=== PATIENT | male | born 1965 ===

== ENCOUNTER 2017-09-07 14:53 | Emergency (ER) | payer OTHER ==
[2017-09-07 15:22] VITALS: BP 139/93
[2017-09-07] MEDS ORDERED: Tetan/Diph/Pertus SYR(Tdap)* 0.5 ML SYR(BOOSTRIX) use SYR IM ONE (16:17)
[2017-09-07] MEDS ORDERED: Bupivacaine 0.25% SDV* 30 ML INJ ONE (16:18)
[2017-09-07] MEDS ORDERED: Lidocaine 1% MPF* 2 ML VIAL INJ ONE (16:19)
--- NOTE | 2017-09-07 16:21 | UC ---
Laceration HPI - HPI Summary HPI Summary: C/O left index finger laceration after catching is on the back deck of the house. Was on a mower. - History Of Current Complaint Chief Complaint: UCLaceration Stated Complaint: L PINKY INJURY - WC Time Seen by Provider: 09/07/17 15:56 Hx Obtained From: Patient Laceration Location: Finger - Left fifth Mechanism Of Injury: Blunt Trauma Onset/Duration: Sudden Onset Severity: Moderate Pain Intensity: 4 Aggravating Factors: Movement Hands: 1 - flap laceration Related History: Occupational Injury, Dominant Hand Right - Allergies/Home Medications Allergies/Adverse Reactions: Allergies Allergy/AdvReac Type Severity Reaction Status Date / Time No Known Allergies Allergy Verified 09/07/17 15:22 Home Medications: Home Medications NK [No Home Medications Reported] 09/07/17 [History Confirmed 09/07/17] PMH/Surg Hx/FS Hx/Imm Hx Previously Healthy: Yes - Surgical History Surgical History: Yes Surgery Procedure, Year, and Place: hernia - Family History Known Family History: Negative: Diabetes - Social History Occupation: Employed Full-time Lives: With Family Alcohol Use: Rare Substance Use Type: None Smoking Status (MU): Former Smoker Review of Systems Skin: Rash - on the back of the hands Is Patient Immunocompromised?: No All Other Systems Reviewed And Are Negative: Yes Physical Exam Triage Information Reviewed: Yes Appearance: Well-Appearing, No Pain Distress, Well-Nourished Vital Signs: Initial Vital Signs Temp 98.9 F 09/07/17 15:15 Pulse 65 09/07/17 15:15 Resp 16 09/07/17 15:15 BP 139/93 09/07/17 15:15 Pulse Ox 98 09/07/17 15:15 Vital Signs Reviewed: Yes Eyes: Positive: Conjunctiva Inflamed Neck exam: Normal Respiratory Exam: Normal Cardiovascular Exam: Normal Musculoskeletal: Positive: Strength Intact - left 5th finger, ROM Intact - left 5th finger Neurological Exam: Normal - sensation intact Psychological Exam: Normal Skin: Positive: significant lesion(s) - laceration left 5th finger Laceration Repair - Laceration Repair 1 Description: Irregular - flap laceration left palmar proximal 5th finger. Flap lifted caudally Laceration Size After Repair: Length (cm) - 7.9 cm Modified For Repair: No Type Injection: Digital - left 5th finger 8cc total Anesthesia Used: 1.0% Lido, 0.25% Marcaine - Digital block left 5th finger Cleansing Completed Via Routine Prep: Yes Irrigation With Pressure Irrigation Device: Yes Closure Material: Sutures Closure Method: Multilayer Suture Of: Skin - 4-0 nylon x22 running stitch, SQ - 4-0 vicryl x2 Suture Type: Nylon - 4-0, Vicryl - 4-0 Diagnostics - Radiology No standard instances Xray Interpretation: No Acute Changes Radiology Interpretation Completed By: ED Physician Laceration Course/Dx - Differential Dx - Laceration/Wound Differental Diagnoses: Abrasion, Avulsion, Laceration Provider Diagnoses: left 5th finger laceration 7.9 cm. layered repair Discharge - Sign-Out/Discharge Documenting (check all that apply): Discharge/Admit/Transfer - Discharge Plan Condition: Stable Disposition: HOME Patient Education Materials: Laceration (ED), Finger Laceration (ED) Referrals: Non Staff,Doctor [Primary Care Provider] - Additional Instructions: Antibiotic ointment with telfa and coflex wrap for compression. Return in 10 days for suture removal - Billing Disposition and Condition Condition: STABLE Disposition: Home Images Hands: 1 - flap apex distal.
[2017-09-07] MEDS ORDERED: Bupivacaine 0.25% SDV* 30 ML ONE (16:26)
--- NOTE | 2017-09-07 17:07 | RAD ---
Indication: Finger injury. 3 views of left fifth digit demonstrates soft tissue injury at the proximal interphalangeal joint. No evidence of fracture is noted. IMPRESSION: Soft tissue injury at the left fifth interphalangeal joint without evidence of fracture.
== END 2017-09-07 17:53 | disposition home or self-care (01) ==
LOC: UCCORT 14:53
DX: S61.211A Laceration without foreign body of left index finger without damage to nail, initial encounter (principal); W26.8XXA Contact with other sharp object(s), not elsewhere classified, initial encounter; Y93.H2 Activity, gardening and landscaping; Y92.007 Garden or yard of unspecified non-institutional (private) residence as the place of occurrence of the external cause; Z87.891 Personal history of nicotine dependence
CPT/HCPCS: 12032; 12042; 73140; 90471; 90715; 99201; G0463